=== PATIENT | female | born 1985 ===

== ENCOUNTER 2017-10-30 05:00 | Outpatient (CLI) | payer BC | END 2017-10-30 23:59 | disposition home or self-care (01) | LOC: DIABETIC 05:00 | PROVIDERS: ATTEND Obstetrics & Gynecology Obstetrics | DX: O24.419 Gestational diabetes mellitus in pregnancy, unspecified control (principal); Z3A.00 Weeks of gestation of pregnancy not specified | CPT/HCPCS: G0108 ==

== ENCOUNTER 2017-11-16 00:15 | Outpatient (CLI) | payer BC | END 2017-11-16 23:59 | disposition home or self-care (01) | LOC: DIABETIC 00:15 | PROVIDERS: ATTEND Obstetrics & Gynecology Obstetrics | DX: O24.419 Gestational diabetes mellitus in pregnancy, unspecified control (principal); Z3A.00 Weeks of gestation of pregnancy not specified | CPT/HCPCS: G0108 ==

== ENCOUNTER 2017-12-02 03:57 | Outpatient (CLI) | payer BC | END 2017-12-02 23:59 | disposition home or self-care (01) | LOC: DIABETIC 03:57 | PROVIDERS: ATTEND Obstetrics & Gynecology Obstetrics | DX: O24.419 Gestational diabetes mellitus in pregnancy, unspecified control (principal); Z3A.00 Weeks of gestation of pregnancy not specified | CPT/HCPCS: G0108 ==

== ENCOUNTER 2017-12-18 08:14 | Outpatient (CLI) | payer BC | END 2017-12-18 23:59 | disposition home or self-care (01) | LOC: DIABETIC 08:14 | PROVIDERS: ATTEND Obstetrics & Gynecology Obstetrics | DX: E11.9 Type 2 diabetes mellitus without complications (principal) | CPT/HCPCS: G0108 ==

== ENCOUNTER 2017-12-29 02:33 | Outpatient (CLI) | payer BC | END 2017-12-29 23:59 | disposition home or self-care (01) | LOC: DIABETIC 02:33 | PROVIDERS: ATTEND Obstetrics & Gynecology Obstetrics | DX: O24.419 Gestational diabetes mellitus in pregnancy, unspecified control (principal); Z3A.00 Weeks of gestation of pregnancy not specified | CPT/HCPCS: G0108 ==

== ENCOUNTER 2018-01-11 04:32 | Outpatient (CLI) | payer BC | END 2018-01-11 23:59 | disposition home or self-care (01) | LOC: DIABETIC 04:32 | PROVIDERS: ATTEND Obstetrics & Gynecology Obstetrics | DX: O24.419 Gestational diabetes mellitus in pregnancy, unspecified control (principal); E11.9 Type 2 diabetes mellitus without complications; Z3A.00 Weeks of gestation of pregnancy not specified | CPT/HCPCS: G0108 ==